=== PATIENT | female | born 1965 | race Caucasian/White ===

== ENCOUNTER 2024-06-27 06:17 | Inpatient (IN) | payer MEDICAID ==
[~2024-06-27] VITALS: Ht 149.9 cm; Wt 55.8 kg
[~2024-06-27 06:17] MED LIST: EMPA25TA PO; GLIM4TAB36 PO; INSU100I28 SQ; LETR2.5T7 PO; LINA1TAB5 PO
[2024-06-27] MEDS ORDERED: SODIUM CHLORIDE 0.9% 1,000 ML IV SCH (07:00)
[2024-06-27] MEDS ORDERED: LIDOCAINE HCL/EPINEPHRINE 1%-EPI 1:100,000 20ML VIAL ONE (08:03)
[2024-06-27] MEDS ORDERED: BUPIVACAINE HCL/PF 0.5% (5MG/ML) 10ML ONE (08:03)
[2024-06-27] MEDS ORDERED: METHYLENE BLUE 50MG/10ML AMP ONE (08:03)
[2024-06-27] MEDS ORDERED: FENTANYL CITRATE/PF 50MCG/ML 2ML VIAL ONE ×2 (09:07→09:55)
[2024-06-27] MEDS ORDERED: HYDROMORPHONE HCL/PF 1MG/ML INJ ONE (09:07)
[2024-06-27] MEDS ORDERED: NEOSTIGMINE METHYLSULFATE 1MG/ML 10 ML VIAL ONE (11:34)
[2024-06-27] MEDS ORDERED: ROCURONIUM BROMIDE 10MG/ML VIAL 5ML IV ONE (11:34)
[2024-06-27] MEDS ORDERED: GLYCOPYRROLATE 0.2 MG/ML 2ML VIAL ONE (11:34)
[2024-06-27] MEDS ORDERED: ONDANSETRON HCL 4MG/2ML INJ IV PRN (12:15)
[2024-06-27] MEDS ORDERED: DEXTROSE 50% WATER 50ML SYRINGE IV PRN (12:15)
[2024-06-27] MEDS ORDERED: ACETAMINOPHEN 325MG TABLET PO PRN (12:15)
[2024-06-27] MEDS ORDERED: GLYCOPYRROLATE 0.2MG/ML VIAL 5ML IV PRN (12:30)
[2024-06-27] MEDS ORDERED: LABETALOL 5MG/ML 4ML INJ IV PRN (12:30)
[2024-06-27] MEDS ORDERED: HYDROMORPHONE HCL/PF 1MG/ML INJ IV PRN ×3 (12:30)
[2024-06-27] MEDS ORDERED: DEXAMETHASONE 4MG/ML 1ML VIAL IV PRN (12:30)
[2024-06-27] MEDS ORDERED: HYDRALAZINE 20MG/ML VIAL IV PRN (12:30)
[2024-06-27] MEDS: BLOOD SUGAR DIAGNOSTIC STRIP TEST SCH (13:00)
[2024-06-27] MEDS ORDERED: NALOXONE HCL 0.4MG/ML VIAL IV PRN (13:00)
[2024-06-27] MEDS: ONDANSETRON HCL 4MG/2ML INJ IV PRN (13:57)
[2024-06-27 14:34] VITALS: BP 117/54; PULSE 81; RESP 18; TEMP 36.8
[2024-06-27] MEDS: INSULIN LISPRO 100 UNITS/ML SUBCUT SCH (14:51)
[2024-06-27 16:00] VITALS: BP 115/50; PULSE 100; RESP 17; TEMP 36.1; O2SAT 97
[2024-06-27] MEDS: ACETAMINOPHEN 325MG TABLET PO PRN (19:53)
[2024-06-27 20:00] VITALS: BP 116/54; PULSE 89; RESP 19; TEMP 36.6; O2SAT 95
[2024-06-27] MEDS: TRAMADOL 50MG TABLET PO PRN (21:21)
[2024-06-28] VITALS: BP 129/58; PULSE 90; RESP 19; TEMP 36.4; O2SAT 96
[2024-06-28 04:00] VITALS: BP 120/58; PULSE 93; RESP 19; TEMP 36.6; O2SAT 96
[2024-06-28] MEDS: GLIMEPIRIDE 2MG TABLET PO SCH (06:40)
[2024-06-28 08:00] VITALS: BP 124/54; PULSE 86; RESP 20; TEMP 36.8; O2SAT 96
[2024-06-28] MEDS: EMPAGLIFLOZIN 25MG TABLET PO SCH (08:36)
[2024-06-28 10:36] VITALS: BP 124/54; PULSE 86; TEMP 98.3; O2SAT 96
[2024-06-28] MEDS: HYDROCODONE/ACETAMINOPHEN 5/325MG TABLET PO PRN (10:51)
== END 2024-06-28 11:50 | disposition home or self-care (01) | DRG 362 ==
LOC: OR 06:17 → EDSTATUS 08:00 → 6EST 13:41
PROVIDERS: ADMIT Surgery Surgical Oncology; ATTEND Surgery Surgical Oncology
PROC: 0HTU0ZZ Resection of Left Breast, Open Approach (ICD-10-PCS; principal; 2024-06-27)
PROC: 07B60ZX Excision of Left Axillary Lymphatic, Open Approach, Diagnostic (ICD-10-PCS; 2024-06-27)
PROC: C71LYZZ Planar Nuclear Medicine Imaging of Upper Chest Lymphatics using Other Radionuclide (ICD-10-PCS; 2024-06-27)
DX: C50.912 Malignant neoplasm of unspecified site of left female breast (principal); Z17.32 Human epidermal growth factor receptor 2 negative status; Z17.0 Estrogen receptor positive status [ER+]; Z90.12 Acquired absence of left breast and nipple
CPT/HCPCS: 78195; 82962; 88305; A4606; A6449; J0665; J1171; J1815; J2004; J2405; J2710; J3010; J3490; Q9968